=== PATIENT | female | born 1945 ===

== ENCOUNTER 2018-11-07 18:51 | Inpatient (IN) | payer MEDICARE ==
[~2018-11-07] VITALS: Ht 162.6 cm; Wt 70.7 kg
[~2018-11-07 18:51] MED LIST: ALBU90OI INH; DOXY100 PO; PROACE100 PO; PROM25 PO
[2018-11-07 19:18] LABS: BASOPHILS ABSOLUTE AUTO 0.04 K/mm3 (0.00-0.23); BASOPHILS PERCENT AUTO 0 % (0-2); EOSINOPHILS ABSOLUTE AUTO 0.04 K/mm3 (0.00-0.68); EOSINOPHILS PERCENT AUTO 0 % (0-6); Hematocrit 31.5 % (33.0-51.0); Hemoglobin 9.9 g/dL (11.5-16.0); IMMATURE GRAN ABSOLUTE AUTO 0.07 K/mm3 (0.00-0.10); IMMATURE GRAN PERCENT AUTO 1 % (0-1); LYMPHOCYTES ABSOLUTE AUTO 1.54 K/mm3 (0.84-5.20); LYMPHOCYTES PERCENT AUTO 12 % (21-46); MONOCYTES ABSOLUTE AUTO 1.05 K/mm3 (0.16-1.47); MONOCYTES PERCENT AUTO 8 % (4-13); Mean Corpuscular HGB 26.1 pg (26.0-34.0); Mean Corpuscular HGB Conc 31.4 g/dL (31.5-36.5); Mean Corpuscular Volume 83 fL (80-100); Mean Platelet Volume 11.3 fL (9.1-12.4); NEUTROPHILS ABSOLUTE AUTO 9.78 K/mm3 (1.96-9.15); NEUTROPHILS PERCENT AUTO 78 % (41-73); Platelet Count 225 K/mm3 (150-400); RDW Coefficient Variation 15.7 % (11.7-14.2); Red Blood Cell Count 3.79 M/mm3 (3.80-5.20); White Blood Cell Count 12.52 K/mm3 (4.00-11.30)
[2018-11-07 19:45] LABS: Alanine Aminotransfer (ALT/SGP 20 U/L (12-78); Albumin, Blood 3.1 g/dL (3.4-5.0); Albumin/Globulin Ratio 0.8 (0.8-1.8); Alk Phos 79 U/L (50-136); Anion Gap 7 mmol/L (6-16); Aspartate Aminotrans (AST/SGOT 32 U/L (12-37); Bilirubin, Total 0.3 mg/dL (0.1-1.0); Blood Urea Nitrogen 17 mg/dL (8-24); CO2, Blood 26 mmol/L (21-32); Calcium, Blood 8.3 mg/dL (8.5-10.1); Chloride, Blood 102 mmol/L (98-108); Creatinine, Blood 1.31 mg/dL (0.40-1.00); Globulin, Blood 3.8 g/dL (2.2-4.0); Glomerular Filtration Rate 42 (60-); Glucose, Blood 166 mg/dL (70-99); Potassium, Blood 3.6 mmol/L (3.5-5.5); Sodium, Blood 135 mmol/L (136-145); Total Protein, Blood 6.9 g/dL (6.4-8.2); Troponin I <0.015 ng/mL (0.000-0.040)
[2018-11-07 21:26] LABS: Source, Urine Clean Catch
[2018-11-07 21:37] LABS: Bilirubin, Urine Neg (Neg); Blood, Urine 3+ (Neg); Glucose Qualitative, Urine Neg (Neg); Ketones, Urine Neg (Neg); Leukocyte Esterase, Urine Neg (Neg); Nitrite, Urine Neg (Neg); Protein, Urine 1+ (Neg); Specific Gravity, Urine 1.005 (1.003-1.022); Urobilinogen, Urine NORM (Normal); pH, Urine 6.5 (5.0-8.0)
[2018-11-07 21:46] LABS: Appearance, Urine Clear (Clear); Color, Urine Yellow (P-Yellow)
[2018-11-07 21:47] LABS: Bacteria Rare /hpf; Squamous Epithelial Cells Few /hpf (Few); White Blood Cells, Urine Rare /hpf (0-5)
[2018-11-07 23:38] LABS: Hematocrit 34.9 % (33.0-51.0); Hemoglobin 10.8 g/dL (11.5-16.0)
[2018-11-08] MEDS ORDERED: METF500 PO (00:15)
--- NOTE | 2018-11-08 00:48 | NUR ---
Admission: Patient arrived to unit at 2350hr via stretcher accompanied by ED nurse. stood and transferred to ICU bed without difficulty. Alert and oriented x4, VSS. Denies pain, discomfort, SOB, or dyspnea. Peripheral IV x1 patent and intact. NS infusing at 75ml/hr. No s/s of active GI bleed at this time. Call placed to Dr. Corado, informed him of lactic acid of 2.1, and that patient received 80mg protonix in ED but does not have any additional protonix ordered. No new orders received at this time. Call light in reach, makes needs known. Will continue to monitor for pain, comfort, safety.
[2018-11-08 02:58] LABS: Hematocrit 33.5 % (33.0-51.0); Hemoglobin 10.5 g/dL (11.5-16.0); Mean Corpuscular HGB 25.9 pg (26.0-34.0); Mean Corpuscular HGB Conc 31.3 g/dL (31.5-36.5); Mean Corpuscular Volume 83 fL (80-100); Mean Platelet Volume 10.2 fL (9.1-12.4); Platelet Count 217 K/mm3 (150-400); RDW Coefficient Variation 15.6 % (11.7-14.2); RDW Standard Deviation 47.2 fL (35.1-46.3); Red Blood Cell Count 4.06 M/mm3 (3.80-5.20); White Blood Cell Count 11.08 K/mm3 (4.00-11.30)
[2018-11-08 03:19] LABS: Albumin/Globulin Ratio 0.7 (0.8-1.8); Bilirubin, Total 0.2 mg/dL (0.1-1.0); Bun/Creatinine Ratio 18.1 (12.0-20.0); Calcium, Blood 8.1 mg/dL (8.5-10.1); Globulin, Blood 4.1 g/dL (2.2-4.0); Potassium, Blood 3.4 mmol/L (3.5-5.5); Total Protein, Blood 7.1 g/dL (6.4-8.2)
--- NOTE | 2018-11-08 06:12 | NUR ---
Shift Summary: No significant changes throughout remainder of shift. No s/s of GI bleeding, VSS. Peripheral IV's x2 patent and intact. Using call light for assistance, makes needs known. Call placed to Dr. Corado this morning r/t potassium -3.4, received order for IV KCl 40meq x1, H+H remains stable. Calm and comfortable at this time, denies needs. Will continue to monitor until report to day shift RN.
--- NOTE | 2018-11-08 07:35 | NUR ---
0700-ASSUMED CARE OF PT. PT IS ALERT AND ORIENTED. DENIES OF BEING DIZZY AT THIS TIME. PT HAS STATED SHE HAD 3 EPISODES OF "PASSING OUT" AT HOME. EXPLAINED TO PT, SHE WILL BE NPO AND WILL ONLY BE GIVEN SIPS OF LIQUID UNTIL GI PHYSICIAN COMES TO SEE HER.
--- NOTE | 2018-11-08 10:53 | NUR ---
0830-PT WAS SEEN BY DR. WRIGHT. PT WILL HAVE COLONOSCOPY DONE TOMORROW. 0915-EXPLAINED TO PT REGARDING PREP FOR COLONOSCOPY. PROVIDED PT WITH CLEAR LIQUIDS ORDERED. PT TOLERATING CLEAR LIQUIDS WELL.
--- NOTE | 2018-11-08 11:18 | NUR ---
SEEN BY DR. FORD. UPDATED HIM OF PT'S CONDITION.
[2018-11-08 11:23] LABS: Hematocrit 32.8 % (33.0-51.0); Hemoglobin 10.5 g/dL (11.5-16.0)
[2018-11-08] MEDS ORDERED: OMEPRAZOLE20 MG PO (12:45)
[2018-11-08] MEDS ORDERED: LISI20 PO (12:46)
[2018-11-08] MEDS ORDERED: PRAV20 PO (12:46)
[2018-11-08] MEDS ORDERED: HYDCHL25 PO (12:47)
[2018-11-08] MEDS ORDERED: LEVSOD75 PO (12:47)
[2018-11-08] MEDS ORDERED: TRAZ50 PO (12:48)
[2018-11-08] MEDS ORDERED: CYCL10 PO (12:48)
--- NOTE | 2018-11-08 17:08 | NUR ---
REPORT GIVEN TO ROGER PASTRANA IN MEDICAL FLOOR. PT WILL BE TRANSFERED TO ROOM 305.
[2018-11-08 17:25] LABS: Hematocrit 30.9 % (33.0-51.0); Hemoglobin 9.9 g/dL (11.5-16.0)
--- NOTE | 2018-11-08 18:32 | NUR ---
1725-PT WAS TRANSFERED TO MEDICAL FLOOR AT THIS TIME.
--- NOTE | 2018-11-08 18:49 | NUR ---
TRANSFER NOTE/ SHIFT SUMMARY RECEIVED RPEORT FROM TIFFANIE JAMES RN IN ICU. PT TO ROOM VIA WHEELCHAIR, SBA TO BATHROOM, PT HAVING LOOSE/LIQUID BM WITH RED PRESENT. PT HAD 2L OF GOLYTLY PRIOR TO TRANSFER PER TIFFANIE. PT ORIENTED TO ROOM AND CALL LIGHT SYSTEM. PT A&Ox4, CALM AND COOPERATIVE WITH CARE. PT DENIES PAIN, SOB AND N/V DURING SHIFT. PT REPORTS DIZZINESS WHEN AMBULATING, EDUCATED ON FALL RISK AND TO USE CALL LIGHT BEFORE GETTING UP. PT RECEIVING IV ANTIBIOTICS. PLANS FOR SCOPE TOMORROW. VSS. NO OTHER ACUTE CHANGES NOTED DURING SHIFT. WILL CONTINUE TO MONITOR UNTIL REPORT GIVEN TO ONCOMING RN.
[2018-11-08 23:24] LABS: Hematocrit 31.8 % (33.0-51.0)
[2018-11-09 04:48] LABS: BASOPHILS ABSOLUTE AUTO 0.04 K/mm3 (0.00-0.23); BASOPHILS PERCENT AUTO 0 % (0-2); EOSINOPHILS ABSOLUTE AUTO 0.01 K/mm3 (0.00-0.68); EOSINOPHILS PERCENT AUTO 0 % (0-6); Hematocrit 30.4 % (33.0-51.0); Hemoglobin 9.7 g/dL (11.5-16.0); IMMATURE GRAN ABSOLUTE AUTO 0.09 K/mm3 (0.00-0.10); IMMATURE GRAN PERCENT AUTO 1 % (0-1); LYMPHOCYTES ABSOLUTE AUTO 2.94 K/mm3 (0.84-5.20); LYMPHOCYTES PERCENT AUTO 20 % (21-46); MONOCYTES ABSOLUTE AUTO 1.01 K/mm3 (0.16-1.47); MONOCYTES PERCENT AUTO 7 % (4-13); Mean Corpuscular HGB 25.9 pg (26.0-34.0); Mean Corpuscular HGB Conc 31.9 g/dL (31.5-36.5); Mean Corpuscular Volume 81 fL (80-100); Mean Platelet Volume 10.1 fL (9.1-12.4); NEUTROPHILS ABSOLUTE AUTO 10.86 K/mm3 (1.96-9.15); NEUTROPHILS PERCENT AUTO 73 % (41-73); Platelet Count 226 K/mm3 (150-400); RDW Coefficient Variation 15.7 % (11.7-14.2); RDW Standard Deviation 46.8 fL (35.1-46.3); Red Blood Cell Count 3.74 M/mm3 (3.80-5.20); White Blood Cell Count 14.95 K/mm3 (4.00-11.30)
[2018-11-09 05:10] LABS: Anion Gap 6 mmol/L (6-16); Blood Urea Nitrogen 12 mg/dL (8-24); Bun/Creatinine Ratio 15.6 (12.0-20.0); CO2, Blood 25 mmol/L (21-32); Calcium, Blood 8.2 mg/dL (8.5-10.1); Chloride, Blood 108 mmol/L (98-108); Creatinine, Blood 0.77 mg/dL (0.40-1.00); Glomerular Filtration Rate >60 (60-); Glucose, Blood 103 mg/dL (70-99); Potassium, Blood 3.5 mmol/L (3.5-5.5); Sodium, Blood 139 mmol/L (136-145)
--- NOTE | 2018-11-09 12:13 | NUR ---
PT TO DAY SURGERY FOR PROCEDURE
--- NOTE | 2018-11-09 13:07 | NUR ---
11/09/18 1307 Delma Smith History, Chart, Medications and Allergies reviewed before start of procedure.PATIENT DETERMINED TO BE ASA APPROPRIATE FOR PROPOFOL SEDATION PRIOR TO START OF PROCEDURE BY .MONITOR INTACT WITH CONTINUOUS PULSE OXIMETRY AND INTERMITTENT BP.3-LEAD EKG REVIEWED WITH PHYSICIAN PRIOR TO START OF PROCEDURE.O2 VIA N/C INTACT THROUGHOUT SEDATION/PROCEDURE.
[2018-11-09 16:03] LABS: Percent Saturation 6.4 % (15.0-50.0)
--- NOTE | 2018-11-09 17:52 | NUR ---
SHIFT SUMMARY PT A&Ox4. CALM AND COOPERATIVE WITH CARE. PT SBA TO BATHROOM/BSC. PT DENIES PAIN, SOB AND N/V DURING SHIFT. PT >92% ON RA. PT HAD COLONOSCOPY THIS AM, STARTED ON NEW ANTIBIOTICS. PT RECEIVING LEVAQUIN IN EVENING. PT CONTINUES ON CLEAR LIQUID DIET THIS EVENING, PLANS TO ADVANCE TO FULL LIQUIDS IN AM. VSS. NO OTHER ACUTE CHANGES NOTED DURING SHIFT. WILL CONTINUE TO MONITOR UNTIL REPORT GIVEN TO ONCOMING RN.
[2018-11-10 04:37] LABS: BASOPHILS ABSOLUTE AUTO 0.03 K/mm3 (0.00-0.23); BASOPHILS PERCENT AUTO 0 % (0-2); EOSINOPHILS ABSOLUTE AUTO 0.12 K/mm3 (0.00-0.68); EOSINOPHILS PERCENT AUTO 1 % (0-6); Hematocrit 30.8 % (33.0-51.0); Hemoglobin 9.9 g/dL (11.5-16.0); IMMATURE GRAN ABSOLUTE AUTO 0.05 K/mm3 (0.00-0.10); IMMATURE GRAN PERCENT AUTO 1 % (0-1); LYMPHOCYTES ABSOLUTE AUTO 3.56 K/mm3 (0.84-5.20); LYMPHOCYTES PERCENT AUTO 35 % (21-46); MONOCYTES ABSOLUTE AUTO 0.64 K/mm3 (0.16-1.47); MONOCYTES PERCENT AUTO 6 % (4-13); Mean Corpuscular HGB 25.8 pg (26.0-34.0); Mean Corpuscular HGB Conc 32.1 g/dL (31.5-36.5); Mean Corpuscular Volume 80 fL (80-100); Mean Platelet Volume 10.1 fL (9.1-12.4); NEUTROPHILS ABSOLUTE AUTO 5.81 K/mm3 (1.96-9.15); NEUTROPHILS PERCENT AUTO 57 % (41-73); Platelet Count 232 K/mm3 (150-400); RDW Coefficient Variation 15.9 % (11.7-14.2); RDW Standard Deviation 46.3 fL (35.1-46.3); Red Blood Cell Count 3.83 M/mm3 (3.80-5.20); White Blood Cell Count 10.21 K/mm3 (4.00-11.30)
[2018-11-10 04:56] LABS: Anion Gap 6 mmol/L (6-16); Blood Urea Nitrogen 7 mg/dL (8-24); Bun/Creatinine Ratio 9.7 (12.0-20.0); CO2, Blood 27 mmol/L (21-32); Calcium, Blood 7.9 mg/dL (8.5-10.1); Chloride, Blood 109 mmol/L (98-108); Creatinine, Blood 0.72 mg/dL (0.40-1.00); Glomerular Filtration Rate >60 (60-); Glucose, Blood 98 mg/dL (70-99); Potassium, Blood 3.2 mmol/L (3.5-5.5); Sodium, Blood 142 mmol/L (136-145)
[2018-11-10] MEDS ORDERED: LEVFLO500 PO (14:46)
[2018-11-10] MEDS ORDERED: METR500 PO (14:47)
[2018-11-10] MEDS ORDERED: Vsl#3 Capsule1 EACH PO (14:47)
[2018-11-10] MEDS ORDERED: POTCHL10ER PO (14:48)
--- NOTE | 2018-11-10 16:31 | NUR ---
PATIENT DISCHARGED AT 1540.
[2018-11-10 18:09] LABS: Adenovirus F 40/41 Not Detected (NOT DETECT); Astrovirus Not Detected (NOT DETECT); Campylobacter Sp Not Detected (NOT DETECT); Cryptosporidium Not Detected (NOT DETECT); Cyclospora Cayetanensis Not Detected (NOT DETECT); E. Coli O157 Not Detected (NOT DETECT); Entamoeba Histolytica Not Detected (NOT DETECT); Enteroaggregative E. coli-EAEC Not Detected (NOT DETECT); Enteropathogenic E. coli-EPEC Not Detected (NOT DETECT); Enterotoxigenic E. coli-ETEC Not Detected (NOT DETECT); Giardia Lamblia Not Detected (NOT DETECT); Norovirus GI/GII Not Detected (NOT DETECT); Plesiomonas Shigelloides Not Detected (NOT DETECT); Rotavirus A Not Detected (NOT DETECT); Salmonella Sp Not Detected (NOT DETECT); Sapovirus Not Detected (NOT DETECT); Shiga Toxin-prod E. coli-STEC Not Detected (NOT DETECT); Shigella/Enteroin E. coli-EIEC Not Detected (NOT DETECT); Vibrio Cholerae Not Detected (NOT DETECT); Vibrio Sp Not Detected (NOT DETECT); Yersinia Enterocolitica Not Detected (NOT DETECT)
== END 2018-11-10 15:46 | disposition home or self-care (01) | DRG 871 ==
LOC: ER 18:51 → PCU 18:52 → ICUE 18:52 → MEDS 11-08 00:02 → ICUE 11-08 11:23 → MEDS 11-08 17:26
PROVIDERS: Emergency Medicine; Internal Medicine; Internal Medicine Gastroenterology; ADMIT Internal Medicine
PROC: 0DBM8ZX Excision of Descending Colon, Via Natural or Artificial Opening Endoscopic, Diagnostic (ICD-10-PCS; principal; 2018-11-09 12:00)
DX: A41.9 Sepsis, unspecified organism (principal); J18.9 Pneumonia, unspecified organism; N17.9 Acute kidney failure, unspecified; K55.9 Vascular disorder of intestine, unspecified; K62.5 Hemorrhage of anus and rectum; E87.6 Hypokalemia; R65.20 Severe sepsis without septic shock; E03.9 Hypothyroidism, unspecified; D50.9 Iron deficiency anemia, unspecified; I10 Essential (primary) hypertension; D63.8 Anemia in other chronic diseases classified elsewhere; I95.9 Hypotension, unspecified
CPT/HCPCS: 36415; 71046; 80048; 80053; 81001; 82728; 82947; 83036; 83540; 83550; 83605; 83735; 83880; 84145; 84443; 84484; 85014; 85018; 85025; 85027; 86850; 86900; 86901; 87507; 88305; 93005; 93010; 94640; 96361; 96365; 96374; 96375; 99285-25; A9270; C9113; G0378; J1956; J2405; J2704; J2930; J3480; J7030; J7120

== ENCOUNTER 2020-07-06 00:12 | Day surgery (SDC) | payer MEDICARE ==
[~2020-07-06 00:12] MED LIST changes: +CYCL10 PO; +HYDROCHLOROTH12.5 MG PO; +LEVFLO500 PO; +LEVSOD75 PO; +LISI20 PO; +METF500 PO; +METR500 PO; +OMEPRAZOLE20 MG PO; +POTCHL10ER PO; +PRAV20 PO; +TRAZ50 PO; +Vsl#3 Capsule1 EACH PO
[2020-09-14] MEDS ORDERED: METF500 (10:11)
== END 2020-07-06 14:55 | disposition home or self-care (01) ==
LOC: ATC 00:12
DX: D50.9 Iron deficiency anemia, unspecified (principal); E03.9 Hypothyroidism, unspecified; E11.9 Type 2 diabetes mellitus without complications; Z79.84 Long term (current) use of oral hypoglycemic drugs
CPT/HCPCS: 96365; J2916

== ENCOUNTER 2020-07-11 00:34 | Day surgery (SDC) | payer MEDICARE ==
[2020-09-14] MEDS ORDERED: METF500 (10:11)
== END 2020-07-11 15:25 | disposition home or self-care (01) ==
LOC: ATC 00:34
DX: D50.9 Iron deficiency anemia, unspecified (principal); E03.9 Hypothyroidism, unspecified; E78.5 Hyperlipidemia, unspecified; E11.9 Type 2 diabetes mellitus without complications; Z79.84 Long term (current) use of oral hypoglycemic drugs; I10 Essential (primary) hypertension; Z88.5 Allergy status to narcotic agent; Z72.0 Tobacco use; Z79.899 Other long term (current) drug therapy
CPT/HCPCS: 96365; J2916

== ENCOUNTER 2020-07-13 00:17 | Day surgery (SDC) | payer MEDICARE ==
--- NOTE | 2020-07-13 15:00 | NUR ---
1500 HEARD PT COUGHING. CHECKED ON PT, PT VOMITING AND STATES SHE FEELS DIZZY. BP 64/36, PULSE 97, TEMP 95.8, RESP 20. IRON TRANSFUSION COMPLETE, DISCONECTED AND NS BOLUS STARTED. O2 VIA NC AT 2LPM PLACED. WARM BLANKETS PLACED ON PATIENT. 1505 RAPID RESPONSE CALLED. BP 55/33, PULSE 102. LUNGS CLEAR TO ANTERIOR. CALLED AND SPOKE WITH DR. EDUARDA DOTSON, PATIENTS PCP. ADVISED TO GIVE PT BENADRYL AND TRANSPORT TO ED FOR MONITORING. HOWEVER PRIOR TO PHONE CALL BEING COMPLETE, PT TRANSFERRED TO [facility] AND TRANSPORTED TO ED BY RAPID RESPONSE TEAM. DR. DOTSON INFORMED OF THIS. 1517 REPORT CALLED TO KARY IN ED, PT HX FAXED TO ED. 1537 UNABLE TO GET AHOLD OF PT'S (PHONE LINE DISCONNECED), ABLE TO REACH DAUGHTER, SATNAM. INFORMED HER THAT HER MOTHER SEEMED TO HAVE A REACTION AND WAS TRANSPORTED TO THE ED.
[2020-07-13] MEDS ORDERED: SYNTHROID88 MCG PO (20:08)
[2020-07-13] MEDS ORDERED: CYCL10 PO (20:09)
[2020-09-14] MEDS ORDERED: METF500 (10:11)
== END 2020-07-13 15:17 | disposition other institution (70) ==
LOC: ATC 00:17
DX: D50.9 Iron deficiency anemia, unspecified (principal); E03.9 Hypothyroidism, unspecified; E78.5 Hyperlipidemia, unspecified; E11.9 Type 2 diabetes mellitus without complications; I10 Essential (primary) hypertension; G47.00 Insomnia, unspecified; Z79.84 Long term (current) use of oral hypoglycemic drugs; Z79.899 Other long term (current) drug therapy; Z88.5 Allergy status to narcotic agent; Z86.39 Personal history of other endocrine, nutritional and metabolic disease
CPT/HCPCS: 96365; J2916; J7030

== ENCOUNTER 2020-07-13 15:21 | Inpatient (IN) | payer MEDICARE ==
[~2020-07-13] VITALS: Ht 167.6 cm; Wt 76.5 kg
[2020-07-13 15:50] LABS: Calcium, Ionized (POC) 1.06 mmol/L (1.10-1.46); Chloride (POC) 108 mmol/L (98-108); Creatinine (POC) 0.9 mg/dL (0.6-1.0); Glucose (ISTAT POC) 162 mg/dL (70-99); Hemoglobin (POC) 12.6 g/dL (12.0-16.0); Potassium (POC) 3.5 mmol/L (3.5-5.5); Sodium (POC) 138 mmol/L (135-148); Total CO2 (POC) 20 mmol/L (21-32)
[2020-07-13 15:54] LABS: BASOPHILS ABSOLUTE AUTO 0.04 K/mm3 (0.00-0.23); BASOPHILS PERCENT AUTO 0 % (0-2); EOSINOPHILS ABSOLUTE AUTO 0.14 K/mm3 (0.00-0.68); EOSINOPHILS PERCENT AUTO 1 % (0-6); Hematocrit 35.8 % (33.0-51.0); Hemoglobin 10.2 g/dL (11.5-16.0); IMMATURE GRAN ABSOLUTE AUTO 0.09 K/mm3 (0.00-0.10); IMMATURE GRAN PERCENT AUTO 1 % (0-1); LYMPHOCYTES ABSOLUTE AUTO 5.58 K/mm3 (0.84-5.20); LYMPHOCYTES PERCENT AUTO 57 % (21-46); MONOCYTES ABSOLUTE AUTO 0.51 K/mm3 (0.16-1.47); MONOCYTES PERCENT AUTO 5 % (4-13); Mean Corpuscular HGB Conc 28.5 g/dL (31.5-36.5); Mean Corpuscular Volume 70 fL (80-100); NEUTROPHILS ABSOLUTE AUTO 3.51 K/mm3 (1.96-9.15); NEUTROPHILS PERCENT AUTO 36 % (41-73); Platelet Count 320 K/mm3 (150-400); RDW Standard Deviation 49.9 fL (35.1-46.3); Red Blood Cell Count 5.09 M/mm3 (3.80-5.20); White Blood Cell Count 9.87 K/mm3 (4.00-11.30)
[2020-07-13 16:06] LABS: Mean Platelet Volume 10.4 fL (9.1-12.4)
[2020-07-13 16:12] LABS: Alanine Aminotransfer (ALT/SGP 22 U/L (12-78); Albumin, Blood 3.1 g/dL (3.4-5.0); Albumin/Globulin Ratio 0.9 (0.8-1.8); Alk Phos 100 U/L (50-136); Anion Gap 11 mmol/L (6-16); Aspartate Aminotrans (AST/SGOT 34 U/L (12-37); Bilirubin, Total 0.5 mg/dL (0.1-1.0); Blood Urea Nitrogen 11 mg/dL (8-24); CO2, Blood 20 mmol/L (21-32); Calcium, Blood 8.5 mg/dL (8.5-10.1); Chloride, Blood 110 mmol/L (98-108); Creatinine, Blood 0.92 mg/dL (0.40-1.00); Globulin, Blood 3.6 g/dL (2.2-4.0); Glomerular Filtration Rate >60 (60-); Glucose, Blood 155 mg/dL (70-99); Potassium, Blood 3.6 mmol/L (3.5-5.5); Sodium, Blood 141 mmol/L (136-145); Total Protein, Blood 6.7 g/dL (6.4-8.2)
[2020-07-13] MEDS ORDERED: SYNTHROID88 MCG PO (20:08)
[2020-07-13] MEDS ORDERED: CYCL10 PO (20:09)
[2020-07-13 23:45] LABS: Hematocrit 36.2 % (33.0-51.0); Hemoglobin 10.1 g/dL (11.5-16.0)
[2020-07-14 03:05] LABS: Influenza A, PCR NEGATIVE (NEGATIVE); Influenza B, PCR NEGATIVE (NEGATIVE); Resp Syncytial Virus, PCR NEGATIVE (NEGATIVE); SARS-Cov-2 (COVID-19) PCR, MMC NEGATIVE (NEGATIVE)
[2020-07-14 04:01] LABS: BASOPHILS ABSOLUTE AUTO 0.03 K/mm3 (0.00-0.23); BASOPHILS PERCENT AUTO 0 % (0-2); EOSINOPHILS PERCENT AUTO 0 % (0-6); Hemoglobin 9.4 g/dL (11.5-16.0); IMMATURE GRAN ABSOLUTE AUTO 0.25 K/mm3 (0.00-0.10); IMMATURE GRAN PERCENT AUTO 1 % (0-1); LYMPHOCYTES ABSOLUTE AUTO 0.79 K/mm3 (0.84-5.20); LYMPHOCYTES PERCENT AUTO 4 % (21-46); MONOCYTES ABSOLUTE AUTO 0.28 K/mm3 (0.16-1.47); MONOCYTES PERCENT AUTO 1 % (4-13); Mean Corpuscular HGB 20.5 pg (26.0-34.0); Mean Corpuscular HGB Conc 28.5 g/dL (31.5-36.5); Mean Corpuscular Volume 72 fL (80-100); Mean Platelet Volume 10.4 fL (9.1-12.4); NEUTROPHILS ABSOLUTE AUTO 18.27 K/mm3 (1.96-9.15); NEUTROPHILS PERCENT AUTO 93 % (41-73); Platelet Count 238 K/mm3 (150-400); RDW Coefficient Variation 29.2 % (11.7-14.2); RDW Standard Deviation 50.8 fL (35.1-46.3); Red Blood Cell Count 4.59 M/mm3 (3.80-5.20); White Blood Cell Count 19.62 K/mm3 (4.00-11.30)
[2020-07-14 04:16] LABS: Albumin/Globulin Ratio 0.9 (0.8-1.8); Alk Phos 82 U/L (50-136); Anion Gap 10 mmol/L (6-16); Aspartate Aminotrans (AST/SGOT 33 U/L (12-37); Bilirubin, Total 0.7 mg/dL (0.1-1.0); Blood Urea Nitrogen 10 mg/dL (8-24); Bun/Creatinine Ratio 11.6 (12.0-20.0); CO2, Blood 21 mmol/L (21-32); Calcium, Blood 7.6 mg/dL (8.5-10.1); Chloride, Blood 111 mmol/L (98-108); Creatinine, Blood 0.86 mg/dL (0.40-1.00); Globulin, Blood 3.4 g/dL (2.2-4.0); Glomerular Filtration Rate >60 (60-); Glucose, Blood 155 mg/dL (70-99); Potassium, Blood 3.2 mmol/L (3.5-5.5); Sodium, Blood 142 mmol/L (136-145); Total Protein, Blood 6.4 g/dL (6.4-8.2)
[2020-07-14 05:48] LABS: Alanine Aminotransfer (ALT/SGP 31 U/L (12-78)
--- NOTE | 2020-07-14 05:51 | NUR ---
ADMIT NOTE/SHIFT SUMMARY PATIENT ADMITTED EARLIER THIS SHIFT FROM THE ER. PATIENT WAS ABLE TO TRANSFER SELF WITH SBA FROM THE GURNEY TO THE BED. PATIENT REPORTS SHE IS "JUST A LITTLE" DIZZY WHEN STANDING BUT THAT IT HAS MUCH IMPROVED SINCE ARRIVAL TO THE ER. PATIENT DENIES ANY ABD CRAMPING OR PAIN AND REPORTS FEELING MUCH BETTER. PATIENT APPEARS TO HAVE NAPPED ON AND OFF FOR SEVERAL HOURS. PATIENT CURRENTLY AWAKE AND SITTING UP IN BED WATCHING TV. IV FLUIDS RUNNING PER ORDERS. PATIENT MEDICATED WITH REGLAN AND ZOFRAN PRIOR TO STARTING GOLYTELY PER ORDERS. GOLYTELY TO START PER ORDERS. WILL CONTINUE CURRENT PLAN OF CARE.
--- NOTE | 2020-07-14 07:15 | NUR ---
PT UP ON BSC, TAKING IN HER GOLYTELY. PT DENIES ANY NEEDS AT THIS TIME. STATES SHE UNDERSTANDS THE PROCESS AND PREPARATION FOR THE COLONOSCOPY THIS AFTERNOON. PT WITH VS STABLE, BREATHING EVEN, UNLABORED WHILE ON THE CHAIR, WATCHING TV, INDEPENDENT IN THE ROOM. WILL REMIND HER TO CALL FOR ANY NEEDS.
[2020-07-14 07:47] LABS: Hematocrit 34.7 % (33.0-51.0); Hemoglobin 9.9 g/dL (11.5-16.0)
--- NOTE | 2020-07-14 09:00 | NUR ---
PT RECEIVING K+ A PIGGYBACK, COMPLAINING OF PAIN AT THE IV SITE. INFUSING IN THE RIGHT A/C,PT RIGHT HANDED AND STILL ON THE BSC. SWITCHED TO THE LEFT A/C. PT CONTINUES TO GO ON THE BSC, STATES ABDOMEN CRAMPING SOME. DOING WELL OTHERWISE.
--- NOTE | 2020-07-14 09:50 | NUR ---
IN TO SEE PATIENT, NO CONCERNS. NO NEW ORDERS RECEIVED. PT BACK IN BED, FINISHED USING BSC, STATES BELLY CONTINUES TO CRAMP BUT BETTER THAN YESTERDAY.
--- NOTE | 2020-07-14 14:22 | NUR ---
PT UP IN RECLINER, CONTINUES WITH IV INFUSING AT 75ML/HR, AWAITING HER PROCEDURE. RESTING.
[2020-07-14 16:01] LABS: Hematocrit 30.1 % (33.0-51.0); Hemoglobin 8.4 g/dL (11.5-16.0)
--- NOTE | 2020-07-14 17:03 | NUR ---
YAYO HAS BEEN UP IN THE RECLINER, TO THE BATHROOM X2, STATES CLEAR LIQUID RETURN. DAUGHTER IN ROOM WITH HER, AWAITING COLONOSCOPY. NO COMPLAINTS, JUST WOULD LIKE TO HAVE SOME WATER. SHE DID STATE THAT HER ABDOMEN IS FEELING BETTER, LESS CRAMPY.
--- NOTE | 2020-07-14 17:11 | NUR ---
THE CREW HAS ARRIVED FOR PREPARATIONS FOR THE COLONOSCOPY. DAUGHTER HAS BEEN ESCORTED TO THE WAITING ROOM FOR THE PROCEDURE, PATIENT RETURNS TO THE BED. A BIT UNSTEADY, ROGER MELGAR ON THAT SIDE OF THE BED AND CAUGHT PATIENT SHE MISSED THE EDGE OF THE BED.
--- NOTE | 2020-07-14 17:41 | NUR ---
07/14/20 1741 Zoë Andrade CASE BEING DONE IN ICU3.
--- NOTE | 2020-07-14 18:39 | NUR ---
YAYO CONTINUES WITH THE COLONOSCOPY, TEAM IN THE ROOM. WILL RECEIVE REPORT FROM THEM AND GIVE REPORT TO NEXT SHIFT.
[2020-07-15 03:44] LABS: BASOPHILS PERCENT AUTO 0 % (0-2); EOSINOPHILS PERCENT AUTO 0 % (0-6); Hematocrit 25.7 % (33.0-51.0); Hemoglobin 7.6 g/dL (11.5-16.0); IMMATURE GRAN ABSOLUTE AUTO 0.12 K/mm3 (0.00-0.10); IMMATURE GRAN PERCENT AUTO 1 % (0-1); LYMPHOCYTES PERCENT AUTO 5 % (21-46); MONOCYTES ABSOLUTE AUTO 0.23 K/mm3 (0.16-1.47); MONOCYTES PERCENT AUTO 2 % (4-13); Mean Corpuscular HGB 20.9 pg (26.0-34.0); Mean Corpuscular HGB Conc 29.6 g/dL (31.5-36.5); Mean Corpuscular Volume 71 fL (80-100); NEUTROPHILS ABSOLUTE AUTO 13.43 K/mm3 (1.96-9.15); NEUTROPHILS PERCENT AUTO 93 % (41-73); Platelet Count 202 K/mm3 (150-400); RDW Coefficient Variation 29.6 % (11.7-14.2); Red Blood Cell Count 3.64 M/mm3 (3.80-5.20); White Blood Cell Count 14.48 K/mm3 (4.00-11.30)
[2020-07-15 03:48] LABS: Mean Platelet Volume 9.8 fL (9.1-12.4)
[2020-07-15 03:57] LABS: Anion Gap 5 mmol/L (6-16); Blood Urea Nitrogen 10 mg/dL (8-24); Bun/Creatinine Ratio 13.1 (12.0-20.0); CO2, Blood 26 mmol/L (21-32); Calcium, Blood 7.6 mg/dL (8.5-10.1); Chloride, Blood 113 mmol/L (98-108); Creatinine, Blood 0.77 mg/dL (0.40-1.00); Glomerular Filtration Rate >60 (60-); Glucose, Blood 152 mg/dL (70-99); Potassium, Blood 3.2 mmol/L (3.5-5.5); Sodium, Blood 144 mmol/L (136-145)
--- NOTE | 2020-07-15 05:13 | NUR ---
LABS PT LAB RESULTS CAME IN LOW FOR POTASSIUM (3.2), HGB (7.6), AND CALCIUM (7.6). CALL PLACED TO MD SUMNER. MD SUMNER WITH ORDERS FOR POTASSIUM REPLACEMENT AND ORDERS TO KEEP WATCHING OTHER LABS.
--- NOTE | 2020-07-15 06:20 | NUR ---
SHIFT SUMMARY PT A&OX4. SP02>92% ON RA. VSS. PT UP TO BATHROOM MULTIPLE TIMES DURING SHIFT TO VOID. PT DENIED PAIN. PT'S POTASSIUM WAS LOW THIS AM, SEE PREVIOUS NOTE. K RIDER STARTED INFUSING THIS AM, IV STARTED LEAKING. L AC IV D/C'D, NEW IV STARTED IN R FOREARM. PT SLEPT T/O NIGHT, REPOSITIONED SELF OFTEN. PT USES CALL LIGHT APPROPRIATELY. WILL GIVE REPORT TO ONCOMING SHIFT.
--- NOTE | 2020-07-15 07:30 | NUR ---
PT RECEIVED FROM ROGER PASTRANA. SHE IS RESTING IN BED,DENIES ANY COMPLAINTS, SAID SHE RESTED WELL, LOOKING FORWARD TO THE POSSIBILITY OF GOING HOME TODAY.
--- NOTE | 2020-07-15 08:30 | NUR ---
FINISHED BREAKFAST, REMAINS IN BED, IN TO SEE PATIENT, PATIENT CONTINUES WITHOUT COMPLAINTS, VITALS STABLE, ORDERS RECEIVED.
--- NOTE | 2020-07-15 09:00 | NUR ---
PT UP AND ABOUT IN ROOM, DENIES ANY COMPLAINTS, UP TO THE CHAIR. DISCUSSIONS ABOUT GOING HOME AND WHAT IT ENTAILS. QUESTIONS ANSWERED.
[2020-07-15 10:47] LABS: Hematocrit 27.6 % (33.0-51.0); Hemoglobin 7.9 g/dL (11.5-16.0)
--- NOTE | 2020-07-15 12:00 | NUR ---
PT GIVEN DISCHARGE INSTRUCTIONS, PT UNDERSTANDS ALL INFORMATION. DAUGHTER CONTACTED TO COME.
--- NOTE | 2020-07-15 12:56 | NUR ---
PT'S DAUGHTER HERE, PT WITH ALL HER BELONGINGS, PAPERWORK AND QUESTIONS ANSWERED. SHE AMBULATED WITH HER DAUGHTER OUT THE DOORS, VERY HAPPY AND THANKING THE STAFF.
[2020-09-14] MEDS ORDERED: METF500 (10:11)
== END 2020-07-15 12:55 | disposition home or self-care (01) | DRG 378 ==
LOC: ER 15:21 → ICUE 15:23 → ICUW 15:23 → ICUE 15:24 → ICUW 22:41 → ICUE 22:41 → ER 22:41 → ICUE 23:03 → ICUW 23:03 → ICUE 07-14 14:30
PROVIDERS: Emergency Medicine; Family Medicine; Internal Medicine; Internal Medicine Gastroenterology; ADMIT Internal Medicine
PROC: 0DBN8ZX Excision of Sigmoid Colon, Via Natural or Artificial Opening Endoscopic, Diagnostic (ICD-10-PCS; 2020-07-14)
PROC: 0DBK8ZX Excision of Ascending Colon, Via Natural or Artificial Opening Endoscopic, Diagnostic (ICD-10-PCS; principal; 2020-07-14 16:45)
PROC: 0DBL8ZX Excision of Transverse Colon, Via Natural or Artificial Opening Endoscopic, Diagnostic (ICD-10-PCS; 2020-07-14 16:45)
DX: K57.31 Diverticulosis of large intestine without perforation or abscess with bleeding (principal); K55.9 Vascular disorder of intestine, unspecified; T45.4X5A Adverse effect of iron and its compounds, initial encounter; K62.5 Hemorrhage of anus and rectum; I95.9 Hypotension, unspecified; I10 Essential (primary) hypertension; E11.9 Type 2 diabetes mellitus without complications; M35.00 Sjogren syndrome, unspecified; K64.8 Other hemorrhoids; D50.0 Iron deficiency anemia secondary to blood loss (chronic)
CPT/HCPCS: 0241U; 36415; 74177; 80047; 80048; 80053; 82947; 83690; 85014; 85018; 85025; 88305; 93005; 93010; 96361; 96365-59; 96367; 96368; 96375; 96376; 99285-25; A9270; C9113; G0378; J0171; J0744; J1170; J1200; J1430; J2250; J2405; J2704; J2765; J2930; J3480; J7030; J7050; J7120; Q9967; Q9968

== ENCOUNTER 2020-09-14 09:39 | Day surgery (SDC) | payer MEDICARE ==
[~2020-09-14] VITALS: Ht 162.6 cm; Wt 72.8 kg
== END 2020-09-14 12:06 | disposition home or self-care (01) ==
LOC: ORSCSDS 09:39
PROC: 0DB98ZX Excision of Duodenum, Via Natural or Artificial Opening Endoscopic, Diagnostic (ICD-10-PCS; principal; 2020-09-14)
PROC: 0DB68ZX Excision of Stomach, Via Natural or Artificial Opening Endoscopic, Diagnostic (ICD-10-PCS; principal; 2020-09-14)
DX: D50.9 Iron deficiency anemia, unspecified (principal); K31.7 Polyp of stomach and duodenum; K29.50 Unspecified chronic gastritis without bleeding; K31.89 Other diseases of stomach and duodenum; K44.9 Diaphragmatic hernia without obstruction or gangrene; I10 Essential (primary) hypertension; E78.5 Hyperlipidemia, unspecified; E03.9 Hypothyroidism, unspecified; E11.9 Type 2 diabetes mellitus without complications; J45.909 Unspecified asthma, uncomplicated; Z79.84 Long term (current) use of oral hypoglycemic drugs; Z79.899 Other long term (current) drug therapy
CPT/HCPCS: 82947; 88305; 88341; 88342; J2405; J2704; J7120

== ENCOUNTER → 2021-07-10 | Outpatient (CLI) | payer MEDICARE ==
[~2021-07-10] MED LIST changes: +METF500; +SYNTHROID88 MCG PO
[2021-07-12 09:30] LABS: Stool Occult Blood Guaiac 1 Pos (Neg)
== END | disposition home or self-care (01) ==
LOC: LAB SHORT 22:00
PROVIDERS: Nurse Practitioner
DX: K55.9 Vascular disorder of intestine, unspecified (principal)
CPT/HCPCS: 82272

== ENCOUNTER → 2021-11-15 | Outpatient (CLI) | payer MEDICARE | END | disposition home or self-care (01) | LOC: LAB SHORT 15:23 → LAB 15:23 | DX: N39.0 Urinary tract infection, site not specified (principal) | CPT/HCPCS: 87077; 87086; 87186 ==

== ENCOUNTER 2024-09-07 12:48 | Inpatient (IN) | payer MEDICARE ==
[~2024-09-07] VITALS: Ht 162.6 cm; Wt 73.4 kg
[~2024-09-07 12:48] MED LIST changes: -METF500
[2024-09-07] MEDS ORDERED: Ondansetron HCl 2 MG / ML 2ML Vial IV PRN (13:15)
[2024-09-07 13:33] LABS: BASOPHILS ABSOLUTE AUTO 0.04 K/mm3 (0.00-0.23); BASOPHILS PERCENT AUTO 1 % (0-2); EOSINOPHILS ABSOLUTE AUTO 0.11 K/mm3 (0.00-0.68); EOSINOPHILS PERCENT AUTO 2 % (0-6); Hemoglobin 14.8 g/dL (11.5-16.0); IMMATURE GRAN ABSOLUTE AUTO 0.03 K/mm3 (0.00-0.10); IMMATURE GRAN PERCENT AUTO 1 % (0-1); LYMPHOCYTES PERCENT AUTO 34 % (21-46); MONOCYTES ABSOLUTE AUTO 0.48 K/mm3 (0.16-1.47); MONOCYTES PERCENT AUTO 8 % (4-13); Mean Corpuscular HGB 31.4 pg (26.0-34.0); Mean Corpuscular HGB Conc 32.9 g/dL (31.5-36.5); Mean Corpuscular Volume 95 fL (80-100); Mean Platelet Volume 10.7 fL (9.1-12.4); NEUTROPHILS ABSOLUTE AUTO 3.39 K/mm3 (1.96-9.15); NEUTROPHILS PERCENT AUTO 55 % (41-73); Platelet Count 174 K/mm3 (150-400); RDW Coefficient Variation 13.3 % (11.7-14.2); RDW Standard Deviation 47.5 fL (35.1-46.3); Red Blood Cell Count 4.72 M/mm3 (3.80-5.20); White Blood Cell Count 6.15 K/mm3 (4.00-11.30)
[2024-09-07 15:39] LABS: Albumin/Globulin Ratio 1.1 (0.8-1.8); Bilirubin, Total 0.3 mg/dL (0.1-1.0); Bun/Creatinine Ratio 16.1 (12.0-20.0); Calcium, Blood 9.6 mg/dL (8.5-10.1); Creatinine, Blood 0.68 mg/dL (0.40-1.00); Globulin, Blood 3.5 g/dL (2.2-4.0); Potassium, Blood 3.6 mmol/L (3.5-5.5); Total Protein, Blood 7.5 g/dL (6.4-8.2)
[2024-09-07] MEDS ORDERED: XYZAL5 MG PO (16:00)
[2024-09-07] MEDS ORDERED: MIRT15 PO (16:00)
[2024-09-07] MEDS ORDERED: ZESTORETIC 20-1 EAC3 PO (16:00)
[2024-09-07] MEDS ORDERED: OMEP20ER PO (16:01)
[2024-09-07] MEDS ORDERED: NS 1,000 ML IV SCH (18:30)
[2024-09-07] MEDS ORDERED: Labetalol HCL 5 MG/ML 4ML Injection (Single Dose) IV PRN (18:35)
[2024-09-07] MEDS ORDERED: Albuterol 2.5 MG/3 ML VIAL INH PRN (18:45)
[2024-09-07] MEDS ORDERED: Metoclopramide HCl 5MG / ML 2ML Vial IV ONE (19:00)
[2024-09-07] MEDS ORDERED: Aspirin 325 MG Tab PO ONE (19:00)
[2024-09-07 22:07] VITALS: BP 138/74
--- NOTE | 2024-09-07 23:26 | NUR ---
ADMIT NOTE REPORT WAS RECEIVED FROM THE ER AT 2157 AND PT WAS BROUGHT DOWN TO ROOM 329 AND WAS ABLE TO AMBULATE FROM THE GURNEY TO THE BED. ALERT ORIENTED X 4 ABLE TO VERBALIZE NEEDS. SHES SETSWANA SPEAKING BUT IS ABLE TO SPEAK AND UNDERSTAND BULGARIAN. SHE C/O NUMBNESS TO THROAT AREA ONLY AND HAS SLURRED SPEECH WITH LT SIDED FACIAL DROOP. SHE ALSO HAS DIFFICULTY WITH SWALLOWING. DR. ORTEGA CAME AND SAW PT AT THE BEDSIDE AND INFORMED HER THAT HE WILL GO IN AND EXAMINE HER ESOPHAGUS AND FIND OUT WHY SHE HAS STADING FOOD AND FLUIDS IN HER ESOPHAGUS. HE STATED TO KEEP HER NPO OVERNIGHT AND TO NOT DO THE ST EVAL TILLAFTER HE GOES IN AND SCOPES HER. PT WAS ORIENTED TO HER ROOM AND STAFF. SHE AMBULATES WELL IN HER ROOM. VSS ON RA. NO C/O PAIN. RESTING IN BED AT THIS TIME WITH CALL LIGHT IN REACH
[2024-09-08] MEDS ORDERED: Insulin Human Lispro 100 Units/ML 3ML Syringe SC SCH
--- NOTE | 2024-09-08 04:05 | NUR ---
SHIFT SUMMARY PT ALERT ORIENTED X 4 ABLE TO VERBALIZE NEEDS GETS UP IN ROOM AD JOSÉ MIGUEL. NO C/O PAIN THIS SHIFT. SHE WAS ADMITTED FROM THE ER AT 2200 LAST NIGHT. HER NIH SCORE WAS A 3. SHE REMAINS WITH SLURRED SPEECH AND NUMBNESS TO HER THROAT AREA. DR. ORTEGA CAME IN AND EXAMINED THE PT AND SAID THAT HE WILL SCOPE HER TODAY TO SEE WHY SHE HAS A DILATED FLUID FILLED SHE WILLHAVE A MRI DONE TODAY. SHES ABLE TO MOVE ALL EXTREMITIES AND SHE REMAINS ON NS AT 100. FS DONE Q6HR. WAS 110. HER CT HEAD SHOWED A 10MM MENINGIOMA SHE REMAINS NPO UNTIL AFTER THE SCOPE TODAY. RESTING IN BED AT THIS TIME WITH CALL LIGHT IN REACH
[2024-09-08 05:27] VITALS: BP 144/70
[2024-09-08 07:30] VITALS: BP 149/76
[2024-09-08] MEDS ORDERED: Aspirin 81 MG Chew PO SCH (09:00)
[2024-09-08] MEDS ORDERED: Pantoprazole Sodium 40 MG Injection IV SCH (09:00)
[2024-09-08] MEDS ORDERED: Enoxaparin 40 MG/0.4 ML SYR SC SCH (09:00)
[2024-09-08] MEDS ORDERED: propofoL 20 ML IV ONE ×2 (13:34→14:28)
[2024-09-08] MEDS ORDERED: Benzocaine Oral Spray 0.5ML UD ONE (13:37)
[2024-09-08] MEDS ORDERED: Lactated Ringer's 1,000 ML IV ONE (13:46)
[2024-09-08 13:55] VITALS: BP 176/91
[2024-09-08] MEDS ORDERED: Lactated Ringer's 1,000 ML IV SCH (13:55)
--- NOTE | 2024-09-08 14:01 | NUR ---
History, Chart, Medications and Allergies reviewed before start of procedure. Pre-Op teaching done. Pt verbalizes understanding. Patient confirms NPO status and agrees with scheduled surgery. PT LEFT ALL BELONGINGS IN MED FLOOR ROOM.
--- NOTE | 2024-09-08 14:16 | NUR ---
09/08/24 1416 Maximo Manzanares MONITOR INTACT WITH CONTINUOUS PULSE OXIMETRY, CONTINUOUS END TITAL CO2, 3-LEAD EKG AND INTERMITTENT BLOOD PRESSURE.Bite Block Placed ANESTHESIA PER DR. GALLARDO
[2024-09-08 14:53] VITALS: BP 148/79
--- NOTE | 2024-09-08 18:18 | NUR ---
SHIFT SUMMARY PT A&OX4, VSS, AMB IND, VOIDING, AND DENIED PAIN. PT HAD EGD W/ BIOPSY. TO DISCUSS RESULTS W/ PT AND PT'S DAUGHTER PARUL. PT ADVISED TO BE STRICTLY NPO UNTIL ST EVAL TOMORROW. NS CONT TO INFUSE PER ORDER. MRI COMPLETED, SEE IMAGING. NO OTHER ACUTE CHANGES. CALL LIGHT WITHIN REACH AND PT ABLE TO MAKE NEEDS KNOWN.
[2024-09-08 19:59] VITALS: BP 200/80
[2024-09-08 23:40] VITALS: BP 179/79
[2024-09-09 04:06] VITALS: BP 153/78
--- NOTE | 2024-09-09 05:10 | NUR ---
SHIFT SUMMARY PT SLEPT INTERMITTENTLY THROUGH THE NIGHT. DR. ORTEGA IN TO DISCUSS EGD WITH PT/ DAUGHTER LAST PM. PT KEPT NPO WITH IVF INFUSING PER ORDER. BLOOD SUGAR CHECKS Q 6HR WITH NO COVERAGE NEEDED. DENIES PAIN. UP TO BATHROOM WITH SBA. BED IN LOWEST POSITION, CALL LIGHT WITHIN REACH, SIDERAILS UP X2.
[2024-09-09 07:25] VITALS: BP 147/73
[2024-09-09 13:12] VITALS: BP 182/84
[2024-09-09 15:51] VITALS: BP 189/87
[2024-09-09 16:34] VITALS: BP 171/73
--- NOTE | 2024-09-09 17:35 | NUR ---
DISCHARGE NOTE PT D/C HOME AT 1730. PT AND PT'S DAUGHTER PROVIDED W/ VERBAL AND WRITTEN INSTRUCTIONS AND REPORTED UNDERSTANDING. PT A&OX4, VSS, AMB IND, TOLERATING PO, VOIDING, AND DENIED PAIN. PT MEDICATED PER EMAR FOR HYPERTENSION, PT ASYMPTOMATIC. BP IMPROVED AFTER ADMIN. BELONGINGS WERE RETURNED AND PT ESCOURTED OUT BY DAUGHTER.
== END 2024-09-09 17:35 | disposition home or self-care (01) | DRG 392 ==
LOC: ER 12:48 → ERHOLD 12:49 → MEDS 12:49 → ER 16:08 → MEDS 21:54
PROVIDERS: Internal Medicine Gastroenterology; Student in an Organized Health Care Education/Training Program; ADMIT Internal Medicine
PROC: 0D748ZZ Dilation of Esophagogastric Junction, Via Natural or Artificial Opening Endoscopic (ICD-10-PCS; principal; 2024-09-08 14:00)
PROC: 0DB78ZX Excision of Stomach, Pylorus, Via Natural or Artificial Opening Endoscopic, Diagnostic (ICD-10-PCS; 2024-09-08 14:00)
DX: K22.89 Other specified disease of esophagus (principal); I10 Essential (primary) hypertension; M35.00 Sjogren syndrome, unspecified; E11.9 Type 2 diabetes mellitus without complications; E03.9 Hypothyroidism, unspecified; K58.9 Irritable bowel syndrome, unspecified; R29.810 Facial weakness; D32.0 Benign neoplasm of cerebral meninges; K21.9 Gastro-esophageal reflux disease without esophagitis; J45.909 Unspecified asthma, uncomplicated; Z88.5 Allergy status to narcotic agent; Z79.890 Hormone replacement therapy; Z79.84 Long term (current) use of oral hypoglycemic drugs; Z85.41 Personal history of malignant neoplasm of cervix uteri; Z87.891 Personal history of nicotine dependence
CPT/HCPCS: 70450; 70496; 70498; 70551; 71046; 74230; 80053; 82947; 83690; 83880; 84484; 85025; 88305; 88342; 92610; 92611; 93005; 93010; 96372; 96374; 96375; A9270; C1726; G0378; J1650; J2470; J2704; J2765; J7030; J7120; Q9967